=== PATIENT | female | born 1985 | race Caucasian/White ===

== ENCOUNTER 2017-07-14 16:33 | Emergency (ER) | payer SELFPAY ==
[2017-07-14 17:04] VITALS: BP 119/60
[2017-07-14 17:29] LABS: Basophils % (Auto) 0.3 % (0.0-1.8); Eosinophils # (Auto) 0.2 K/mm3 (0.0-0.4); Eosinophils % (Auto) 2.6 % (0.0-4.3); Hematocrit 30.6 % (30.3-42.9); Lymphocytes # (Auto) 1.9 K/mm3 (1.2-5.4); Lymphocytes % (Auto) 20.5 % (13.4-35.0); Mean Corpuscular HGB Conc 33 % (30-34); Mean Corpuscular Hemoglobin 27 pg (28-32); Mean Corpuscular Volume 82 fl (79-97); Monocytes # (Auto) 0.7 K/mm3 (0.0-0.8); Monocytes % (Auto) 7.5 % (0.0-7.3); Platelet Count 271 K/mm3 (140-440); Red Blood Count 3.73 M/mm3 (3.65-5.03); Red Cell Distribution Width 18.6 % (13.2-15.2)
--- NOTE | 2017-07-14 19:18 | Ultrasound Report ---
FINAL REPORT EXAM: US OB > = 14 WEEKS FETUS HISTORY: abd pain TECHNIQUE: Ultrasound obstetrical transabdominal PRIORS: None. FINDINGS: Single live intrauterine gestation present in transverse position cardiac activity present with heart rate 143 beats per minute Placenta is anterior. No evidence for placental abruption. biometric measurements were obtained Biparietal diameter 18 weeks 1 day Head circumference 18 weeks 1 day abdominal circumference 18 weeks 1 day Femur length 18 weeks 1 day Based on today's exam estimated gestational age is 18 weeks 1 day with estimated date of delivery December 14, 2017 Cervical length 3.8 centimeters Estimated weight today is 226 grams IMPRESSION: Single live intrauterine gestation estimated at 18 weeks 1 day
== END 2017-07-14 21:00 | disposition left against medical advice (07) ==
LOC: ED 16:33
DX: R10.2 Pelvic and perineal pain (principal); Z53.21 Procedure and treatment not carried out due to patient leaving prior to being seen by health care provider
CPT/HCPCS: 36415; 76805; 84702; 85025; 86850; 86900; 86901